=== PATIENT | male | born 1985 | race Caucasian/White ===

== ENCOUNTER 2018-05-19 14:46 | Inpatient (IN) ==
[2018-05-19] MEDS ORDERED: SINEMET 25/100 PO PRN (17:53)
[2018-05-19] MEDS ORDERED: BENTYL PO PRN (17:53)
[2018-05-19] MEDS ORDERED: TUBERSOL ID ONE (17:53)
[2018-05-19] MEDS ORDERED: PHENOBARBITAL IV PRN (17:53)
[2018-05-19] MEDS ORDERED: SENOKOT PO PRN (17:53)
[2018-05-19] MEDS ORDERED: ZOFRAN IV PRN (17:53)
[2018-05-19] MEDS ORDERED: NS 1,000 ML IV ONE (17:53)
[2018-05-19] MEDS ORDERED: DESYREL PO PRN (17:53)
[2018-05-19] MEDS ORDERED: MAALOX PLUS LIQUID PO PRN (17:53)
[2018-05-19] MEDS ORDERED: TYLENOL PO PRN (17:53)
[2018-05-19] MEDS ORDERED: D5W 1,000 ML IV PRN (17:53)
[2018-05-19] MEDS ORDERED: SEROQUEL PO PRN (17:53)
[2018-05-19] MEDS ORDERED: MOTRIN PO PRN (17:53)
[2018-05-19] MEDS ORDERED: DULCOLAX PR PRN (17:53)
[2018-05-19] MEDS ORDERED: ZOFRAN ODT PO PRN (17:53)
[2018-05-19] MEDS ORDERED: NICODERM PATCH TD PRN (17:53)
[2018-05-19] MEDS ORDERED: LIBRIUM PO PRN (17:53)
[2018-05-19] MEDS ORDERED: IMODIUM PO PRN (17:53)
[2018-05-19] MEDS ORDERED: SUBOXONE 2 MG/0.5 MG FILM SL SCH (18:00)
[2018-05-19 19:05] LABS: HEMATOCRIT 33.3 % (42.0-52.0); MCH 28.3 PG (27-31); MCV 85.6 FL (81-99); MPV 9.4 FL (7.4-10.4); RBC 3.89 XMIL (4.7-6.1); RDW 13.2 % (11.5-14.5); WBC 6.1 X1000 (4.8-10.8)
[2018-05-19 19:22] LABS: AMYLASE 40 U/L (20-200); LIPASE 16 U/L (13-60)
[2018-05-19 19:24] LABS: AGAP 11; ALBUMIN 3.5 g/dL (3.5-5.0); ALKALINE PHOSPHATASE 69 U/L (32-122); BUN 16 mg/dL (8-22); CALCIUM 8.8 mg/dL (8.8-10.2); CHLORIDE 97 mmol/L (98-107); COSMO 274; CREATININE 0.8 mg/dL (0.7-1.2); ESTIMATED GFR > 60; GLUCOSE 109 mg/dL (70-104); GOT 37 U/L (10-34); GPT 75 U/L (10-44); POTASSIUM 3.5 mmol/L (3.5-5.1); SODIUM 136 mmol/L (136-145); TCO2 29 mmol/L (25-35); TOTAL PROTEIN 6.8 g/dL (6.3-8.3)
[2018-05-19 19:39] LABS: INR 0.9; PROTIME 12.6 Seconds (11.0-16.0)
[2018-05-19 23:56] LABS: UR AMPHETAMINES QUAL PRESUMPTIVE POSITIVE (NONE DETECT); UR BARBITUATES QUAL NONE DETECTED (NONE DETECT); UR BENZODIAZEPIN QUAL PRESUMPTIVE POSITIVE (NONE DETECT); UR COCAINE QUAL NONE DETECTED (NONE DETECT); UR METHADONE QUAL NONE DETECTED (NONE DETECT); UR METHAMPHETAMINE QUAL PRESUMPTIVE POSITIVE (NONE DETECT)
[2018-05-19 23:57] LABS: UR CANNABINOIDS QUAL NONE DETECTED (NONE DETECT); UR OPIATES QUAL PRESUMPTIVE POSITIVE (NONE DETECT); UR OXYCODONE QUAL NONE DETECTED (NONE DETECT); UR PCP QUAL NONE DETECTED (NONE DETECT); UR PROPOXYPHENE QUAL NONE DETECTED (NONE DETECT); UR TCA QUAL NONE DETECTED (NONE DETECT)
[2018-05-20] MEDS: SUBOXONE 2 MG/0.5 MG FILM SL SCH ×3 (00:36→20:21)
[2018-05-20 03:39] LABS: URINE SOURCE VOIDED
[2018-05-20 03:54] LABS: BILIRUBIN URINE NEGATIVE (NEGATIVE); BLOOD URINE NEGATIVE (NEGATIVE); CLARITY CLEAR (CLEAR); COLOR YELLOW; GLUCOSE URINE NEGATIVE (NEGATIVE); KETONE URINE NEGATIVE (NEGATIVE); LEUKOCYTES URINE NEGATIVE (NEGATIVE); NITRITE URINE NEGATIVE (NEGATIVE); PH URINE 6.5; PROTEIN URINE NEGATIVE (NEGATIVE); SP GRAVITY URINE 1.015; UROBILINOGEN URINE NORMAL
[2018-05-20] MEDS: PROTONIX PO SCH ×2 (06:00→10:50)
[2018-05-20] MEDS ORDERED: TUBERSOL ID ONE ×2 (07:00→16:15)
[2018-05-20] MEDS: FOLIC ACID PO SCH (10:46)
[2018-05-20] MEDS: THERA M PLUS PO SCH (10:47)
[2018-05-20] MEDS: VITAMIN B-1 PO SCH (10:47)
[2018-05-21] MEDS: PROTONIX PO SCH (06:12)
[2018-05-21] MEDS: THERA M PLUS PO SCH (11:50)
[2018-05-21] MEDS: VITAMIN B-1 PO SCH (11:51)
[2018-05-21] MEDS: SUBOXONE 2 MG/0.5 MG FILM SL SCH ×2 (11:51→21:29)
[2018-05-21] MEDS: FOLIC ACID PO SCH (11:51)
[2018-05-21] MEDS: ROBAXIN PO PRN (21:29)
[2018-05-21] MEDS: ATARAX PO PRN (21:29)
--- NOTE | 2018-05-22 01:00 | PROGRESS NOTE ---
DATE: 05/20/2018 SUBJECTIVE: Patient seen and examined by myself on the . This morning, he is very sleepy and somewhat tired. Did not sleep much at all last night. He is arousable. He is in no distress. PHYSICAL EXAMINATION: Vital Signs: Temperature 97.9 degrees, pulse 74, respiratory 20, BP 118/66. General: Patient is awake, alert. Currently he is in no respiratory distress. He is very pleasant to talk with. HEENT: Normocephalic. Neck: Supple. CARDIOVASCULAR: Regular rate. No murmurs. Chest: Clear and nonlabored. Abdomen: Soft. Extremities: Moves all extremities. Neurologic: No focal changes. Skin: Warm, dry. No rashes. ASSESSMENT: 1. Nausea and vomiting. 2. Abdominal pain. 3. Myalgias. 4. Paresthesias. 5. Opiate abuse, withdrawal and stabilization. 6. Chronic anxiety and depression. 7. Hepatitis C. PLAN: We will continue patient in hospital. Continue to follow. Further orders as needed. Continue Suboxone taper. Continue counseling. cc: Chin Martini MD
--- NOTE | 2018-05-22 01:23 | PROGRESS NOTE ---
DATE: 05/21/2018 SUBJECTIVE: Patient is seen and examined. States that he is feeling a lot better. Still having muscle aches, but he is eating better, was able to tolerate supper last night. He is eager to eat breakfast this morning. PHYSICAL EXAMINATION: Vital Signs: Reviewed. He is afebrile. Temperature 97.5 degrees, pulse 84, respiratory 18, BP 94/62. General: Patient is in no current respiratory distress. We will continue to follow. HEENT: Normocephalic, atraumatic. Neck: Supple. CARDIOVASCULAR: Regular rate. No murmurs. Chest: Clear and nonlabored. Abdomen: Soft. Extremities: Moves all extremities. ASSESSMENT: 1. Nausea and vomiting. 2. Abdominal pain. 3. Myalgias. 4. Paresthesias. 5. Chronic pain. PLAN: We will continue patient in the hospital, continue Suboxone taper. Hopefully can be discharged home over the next couple of days. Continue to look for further inpatient facilities. cc: Chin Martini MD
[2018-05-22] MEDS: PROTONIX PO SCH (06:22)
[2018-05-22] MEDS: SUBOXONE 2 MG/0.5 MG FILM SL SCH (10:16)
[2018-05-22] MEDS: FOLIC ACID PO SCH (10:16)
[2018-05-22] MEDS: THERA M PLUS PO SCH (10:16)
[2018-05-22] MEDS: VITAMIN B-1 PO SCH (10:16)
[2018-05-22] MEDS: ROBAXIN PO PRN (21:23)
[2018-05-22] MEDS: ATARAX PO PRN (21:23)
[2018-05-23] MEDS: PROTONIX PO SCH (06:20)
[2018-05-23] MEDS: THERA M PLUS PO SCH (07:59)
[2018-05-23] MEDS: FOLIC ACID PO SCH (07:59)
[2018-05-23] MEDS: VITAMIN B-1 PO SCH (07:59)
[2018-05-23] MEDS: SUBOXONE 2 MG/0.5 MG FILM SL SCH (07:59)
[2018-05-23 10:53] VITALS: BP 122/69
--- NOTE | 2018-05-23 14:46 | PROGRESS NOTE ---
DATE: 05/22/2018 SUBJECTIVE: Patient seen and examined by myself on the [facility]. States he is feeling a lot better. Still having some muscle aches. His tremors, nausea, vomiting and myalgias are all improving. OBJECTIVE: Vital Signs: On physical examination, temperature 97.9, pulse 77, respiratory rate 20, BP 108/54. General: Patient is awake, alert, very pleasant to talk with. She is in no current respiratory distress. HEENT: Normocephalic. Neck: Supple. CV: Regular rate. No murmurs. Chest: Clear, nonlabored. Abdomen: Soft. Extremities: Moves all extremities. Neurologic: No focal changes. Skin: Warm and dry. No rashes. ASSESSMENT: 1. Nausea and vomiting. 2. Abdominal pain. 3. Myalgias. 4. Paresthesias. 5. Paroxysmal sweating. 6. Opiate abuse, withdrawal and stabilization. PLAN: Will continue patient in the hospital, continue to wean Suboxone. Will decrease to 2 mg a day and see how he does. Hopefully, he can discharge to further inpatient treatment over the next day or two. cc: Chin Martini MD
--- NOTE | 2018-05-23 16:21 | HISTORY AND PHYSICAL ---
CHIEF COMPLAINT: Nausea, vomiting. HISTORY OF PRESENT ILLNESS: The patient was seen on the . He has had a history of nausea, vomiting, abdominal pain, myalgias. He has been using and abusing opiates. States that he has been in treatment facilities in the past, but has been unsuccessful. He continue to use secondary to his withdrawal symptoms, and would like to get some assistance with getting his life back under control. SOCIAL HISTORY: Patient is single. He is unemployed. Lives at home in [place]. PAST MEDICAL HISTORY: Has a history of hepatitis C. Due to his recurrent drug abuse, he has not had any treatment. He has chronic anxiety, depression, had a seizure in 2010 that was likely drug related. MEDICATIONS: He is on no current prescription medications. ALLERGIES: No know allergies to medications. REVIEW OF SYSTEMS: CINA score is 7 secondary to nausea, vomiting, frequent hot and cold chills myalgias, frequently agitated. He is having paroxysmal sweating. Does have a history of PTSD and has issues with anxiety. Denies any chest pain, palpitations. Denies any fevers or chills. SUBSTANCE ABUSE HISTORY: The patient was in a treatment facility at [facility] for a month or so in 2017, was at [facility] for 15 months in 2018, He notes that he graduated the program. He went to [facility] in [place] for 2 weeks in 2018. However, he quickly started using again. Was on methadone from 2007 to 2009, tried Suboxone before that from 1999 to 2007. He has a long history of using/abusing Xanax; has not been using recently. Started smoking meth at age 19, currently smokes 1 or 2 times a week. Started opiates at age 30. Currently , he has been using IV heparin at least half a gram a day. Started smoking as early as age 7. Currently smokes a pack a day. FAMILY HISTORY: Noncontributory. PHYSICAL EXAMINATION: GENERAL APPEARANCE: Reviewed and stable. Patient is awake, alert, oriented. Currently in no respiratory distress. He is pleasant to talk with. He is somewhat ill- appearing due to his withdrawal symptoms. HEENT: Normocephalic, atraumatic. JOLEEN. NECK: Supple. No JVD. CV: Regular rate. No murmurs. CHEST: Chest clear, nonlabored. ABDOMEN: Soft, nondistended. EXTREMITIES: Moves all extremities. NEUROLOGIC: No focal changes. SKIN: Warm, dry. No rashes. ASSESSMENT: 1. Nausea and vomiting. 2. Abdominal pain. 3. Myalgias. 4. Paresthesias. 5. Paroxysmal sweating. 6. Opiate abuse withdrawal and stabilization. 7. Chronic tobacco abuse. 8. Chronic drug use and abuse. PLAN: We will admit patient to the hospital. We will initially place him on Suboxone. We will continue to wean. We will begin looking for further inpatient treatment facilities and see if this is available. Continue counseling. Further orders as needed. cc: Chin Martini MD MTDD
--- NOTE | 2018-05-24 10:24 | DISCHARGE SUMMARY ---
ADMISSION DATE: 05/19/2018 DISCHARGE DATE: 05/23/2018 DISCHARGE DIAGNOSES: 1. Nausea, vomiting and abdominal pain. 2. Myalgias. 3. Paresthesias. 4. Paroxysmal sweating. 5. Opiate abuse withdrawal and stabilization. 6. Chronic polysubstance use and abuse. 7. Chronic tobacco abuse. CONSULTATIONS: None. PROCEDURES: None. BRIEF HOSPITAL COURSE: The patient is a 33-year-old male, who presented to [facility] secondary to nausea, vomiting, and abdominal pain. The patient has a long history of use and abuse. He has been in a treatment facility in the past to include Suboxone as well as methadone. Unfortunately he failed each of those. He has been in an inpatient treatment facility for a year and a half and again failed that as well. The patient will be admitted to the hospital, treated in the usual fashion, placed on Suboxone taper. We will continue counseling. Further orders as needed. DISPOSITION: Thankfully the patient had an uneventful hospital course. He was treated in the usual fashion, placed on Suboxone. We tapered this down. On discharge he was on 2 mg over 36 hours. He will be discharged to further inpatient treatment that does not allow Suboxone. Therefore, no further prescriptions were written. The patient will be discharged here and will be taken directly to the inpatient facility via his family. TIME SPENT: Discussed with patient on discharge, greater than 30 minutes, that he needs to avoid all persons, places, and situations in which he has been using and abusing in the past. He needs outpatient life counseling even when he gets out of inpatient treatment. cc: Chin Martini MD
== END 2018-05-23 11:45 | disposition home or self-care (01) | DRG 897 ==
LOC: P.MEDSURG 17:07
PROVIDERS: ADMIT Family Medicine; ATTEND Family Medicine
CPT/HCPCS: 80053; 80104; 80301; 80305; 80307; 80320; 82055; 82150; 83690; 85027; 85610; 86580; A9270; G0431; G0434; G0477; G0480; G6040; J7030